=== PATIENT | female | born 1985 | race Caucasian/White ===

== ENCOUNTER 2018-03-31 20:39 | Inpatient (IN) | payer OTHER ==
[~2018-03-31] VITALS: Ht 154.9 cm; Wt 64.4 kg
[~2018-03-31 20:39] MED LIST: DSS100 PO; IBUP-2070 PO; PREN1TAB80 PO
[2018-03-31 21:32] VITALS: BP 106/69
[2018-03-31] MEDS ORDERED: RINGERS SOLUTION,LACTATED 1,000 ML IV PRN (23:10)
[2018-03-31] MEDS ORDERED: METOCLOPRAMIDE HCL 5 MG/ML 2 ML VIAL IVP PRN (23:15)
[2018-03-31] MEDS ORDERED: CITRIC ACID/SODIUM CITRATE 30 ML SOLUTION UDCUP PO PRN (23:15)
[2018-03-31] MEDS ORDERED: FentaNYL CITRATE-PF 100 MCG/2 ML VIAL IVP PRN (23:15)
[2018-03-31] MEDS ORDERED: ROPIVACAINE HCL/PF 0.2% 100 ML ED ONE (23:37)
[2018-03-31] MEDS ORDERED: LIDOCAINE/PF 2% 5 ML VIAL ONE (23:37)
[2018-04-01] MEDS ORDERED: ONDANSETRON HCL 4 MG/2 ML VIAL IVP PRN
[2018-04-01] MEDS ORDERED: ROPIVACAINE HCL/PF 0.2% 100 ML ED PRN
[2018-04-01] MEDS ORDERED: NALBUPHINE HCL 10 MG/ML VIAL IVP PRN
[2018-04-01] MEDS ORDERED: DiphenhydrAMINE HCL 50 MG/ML VIAL IVP PRN
[2018-04-01 00:10] LABS: BASOPHILS % (AUTO) 0.3 % (0.0-2.0); EOSINOPHILS % (AUTO) 0.3 % (1.0-6.0); HEMATOCRIT 36.8 % (36-46); HEMOGLOBIN 12.5 g/dL (12.0-16.0); LYMPHOCYTES # (AUTO) 3.4 K/uL (1.0-4.8); MEAN CORPUSCULAR HEMOGLOBIN 32.7 pg (26.0-34.0); MEAN CORPUSCULAR HGB CONC 33.9 G/dL (31.0-37.0); MEAN CORPUSCULAR VOLUME 96 fL (80-100); MONOCYTES # (AUTO) 0.7 K/uL (0.1-1.0); NEUTROPHILS # (AUTO) 7.5 K/uL (1.8-7.7); NEUTROPHILS % (AUTO) 64.4 % (40.0-70.0); PLATELET COUNT (AUTO)-OB 141 K/uL (150-450); RED BLOOD CELL COUNT(AUTO) 3.82 MIL/uL (4.00-5.20); RED CELL DISTRIBUTION WIDTH 14.7 % (11.5-14.5)
[2018-04-01] MEDS: RINGERS SOLUTION,LACTATED 1,000 ML IV SCH ×3 (00:24→11:13)
[2018-04-01] MEDS: OXYGEN THERAPY IH SCH ×2 (03:41→13:05)
[2018-04-01] MEDS ORDERED: OXYTOCIN 30 UNITS/LACT RINGERS 500 ML IV ONE (06:45)
[2018-04-01] MEDS ORDERED: OXYTOCIN 30 UNITS/LACT RINGERS 500 ML IV PRN (09:18)
[2018-04-01] MEDS ORDERED: GLYCERIN/WITCH HAZEL LEAF 40 PADS JAR TP PRN (13:15)
[2018-04-01] MEDS ORDERED: LANOLIN 7 GM OINTMENT TP PRN (13:15)
[2018-04-01] MEDS ORDERED: OxyCODONE HCL/ACETAMINOPHEN 5-325 MG TABLET PO PRN ×2 (13:15)
[2018-04-01] MEDS ORDERED: BENZOCAINE 20%/MENTHOL 56 GM SPRAY CANISTER TP PRN (13:15)
[2018-04-01] MEDS: IBUPROFEN 800 MG TABLET PO PRN (17:50)
[2018-04-01] MEDS: MAGNESIUM HYDROXIDE SUSPENSION 30 ML UDCUP PO PRN (21:44)
[2018-04-02] MEDS: IBUPROFEN 800 MG TABLET PO PRN ×2 (01:18→07:54)
[2018-04-02] MEDS: MAGNESIUM HYDROXIDE SUSPENSION 30 ML UDCUP PO PRN (08:54)
[2018-04-02] MEDS ORDERED: IBUP-2071 PO (10:26)
[2018-04-02] MEDS ORDERED: DSS100 PO (10:27)
== END 2018-04-02 13:05 | disposition home or self-care (01) | DRG 807 ==
LOC: 4S 20:39 → OBSVTOIN 20:39 → 4S 20:49 → INTOOBSV 20:49 → OBSVTOIN 20:49 → UNDOADMOB 20:49
PROVIDERS: ADMIT Obstetrics & Gynecology; ATTEND Obstetrics & Gynecology
PROC: 10E0XZZ Delivery of Products of Conception, External Approach (ICD-10-PCS; principal; 2018-04-01)
PROC: 0KQM0ZZ Repair Perineum Muscle, Open Approach (ICD-10-PCS; 2018-04-01)
PROC: 3E0R3BZ Introduction of Anesthetic Agent into Spinal Canal, Percutaneous Approach (ICD-10-PCS; 2018-04-01)
PROC: 00HU33Z Insertion of Infusion Device into Spinal Canal, Percutaneous Approach (ICD-10-PCS; 2018-04-01)
DX: O69.81X0 Labor and delivery complicated by cord around neck, without compression, not applicable or unspecified (principal); Z37.0 Single live birth; O70.1 Second degree perineal laceration during delivery; Z3A.39 39 weeks gestation of pregnancy
CPT/HCPCS: 86850; 86900; 86901; 90686; J2590; J2795; J3490; J7120